=== PATIENT | female | born 1965 | race Caucasian/White ===

== ENCOUNTER 2016-09-30 08:25 | Emergency (ER) | payer BC ==
[2016-09-30 08:35] VITALS: RESP 18
[2016-09-30] MEDS ORDERED: KETOROLAC 30 MG/ML 1 ML VIAL IVP STA (08:44)
[2016-09-30] MEDS ORDERED: SODIUM CHLORIDE 0.9% 1,000 ML IV STA (08:44)
[2016-09-30] MEDS ORDERED: ONDANSETRON 4 MG/2 ML VIAL IVP STA (08:44)
--- NOTE | 2016-09-30 08:50 | ED ---
Abdominal Pain HPI - General Chief Complaint: Abdominal Pain Stated Complaint: ABDOMINAL AND BACK PAIN Time Seen by Provider: 09/30/16 08:37 Source: patient, RN notes reviewed Mode of arrival: ambulatory Limitations: no limitations - History of Present Illness Initial Comments: 51-year-old female presents emergency Department chief complaint right-sided abdominal pain. Patient states pain isn't present for 1 week. Patient states she woke up on with that sleep with the sudden onset of pain. Patient states that she's been seen twice at [facility] with no answers. Patient states that she did have a CAT scan without contrast rule out kidney stone though she states there was no stones. Patient denies fever, chills, night sweats. Patient does admit to some nausea but no vomiting no diarrhea no constipation. Denies any melena or hematochezia. Patient had a prior cholecystectomy in 2008 and a hysterectomy 2011. Patient denies any dysuria or hematuria. Denies any vaginal bleeding vaginal discharge. Patient states that nothing makes it feel better or worse. She states she did go back for second ER visit there and they told her she had a back strain but states that she has no tenderness her back she has no increased pain with range of motion. Patient was given Flexeril. Patient states that it primarily starts in her right upper quadrant, right lower abdomen and radiates to her back. - Related Data Home Medications Medication Instructions Recorded Confirmed Cyclobenzaprine [Flexeril] 10 mg PO BID PRN 09/30/16 09/30/16 Ibuprofen [Motrin] 800 mg PO Q6H PRN 09/30/16 09/30/16 Previous Rx's Medication Instructions Recorded Dicyclomine [Bentyl] 20 mg PO TID #30 tablet 09/30/16 traMADol HCl [Ultram] 50 mg PO Q6H PRN #20 tab 09/30/16 Allergies Allergy/AdvReac Type Severity Reaction Status Date / Time No Known Allergies Allergy Unverified 09/30/16 09:04 Review of Systems ROS Statement: Those systems with pertinent positive or pertinent negative responses have been documented in the HPI. ROS Other: All systems not noted in ROS Statement are negative. Past Medical History Past Medical History: No Reported History History of Any Multi-Drug Resistant Organisms: None Reported Past Surgical History: Section, Cholecystectomy, Hysterectomy Past Psychological History: No Psychological Hx Reported Smoking Status: Current every day smoker Past Alcohol Use History: None Reported Past Drug Use History: None Reported General Exam Limitations: no limitations General appearance: alert, in no apparent distress Head exam: Present: atraumatic, normocephalic, normal inspection Respiratory exam: Present: normal lung sounds bilaterally. Absent: respiratory distress, wheezes, rales, rhonchi, stridor Cardiovascular Exam: Present: regular rate, normal rhythm, normal heart sounds. Absent: systolic murmur, diastolic murmur, rubs, gallop, clicks GI/Abdominal exam: Present: soft, tenderness (Moderate tenderness right upper quadrant, right side of mid abdomen, no CVA tenderness), normal bowel sounds. Absent: distended, guarding, rebound, rigid Back exam: Present: full ROM. Absent: tenderness, CVA tenderness (R), CVA tenderness (L), paraspinal tenderness, vertebral tenderness Skin exam: Present: warm, dry, intact, normal color. Absent: rash Course Vital Signs 09/30/16 08:33 Temperature 98.4 F Pulse Rate 69 Respiratory 18 Rate Blood Pressure 154/73 O2 Sat by Pulse 99 Oximetry Medical Decision Making - Medical Decision Making 51-year-old female presented for redness abdominal pain. Patient's lab work, CT within normal limits. Patient was given Toradol emergency department though she states does not help her pain much. Patient was offered additional pain medication though she declined stating that she does not like the way it makes her feel. Patient has had no vomiting emergency department. Patient is advised that she needs to follow-up with on-call GI or surgeon for colonoscopy or EGD. Patient states does agree to this plan. Patient will be discharged with tramadol. Return parameters were discussed. - Lab Data Result diagrams: 09/30/16 09:35 09/30/16 09:35 Lab Results 09/30/16 09/30/16 09/30/16 Range/Units 09:35 09:35 09:35 WBC 11.1 H (3.8-10.6) k/uL RBC 4.24 (3.80-5.40) m/uL Hgb 13.3 (11.4-16.0) gm/dL Hct 41.1 (34.0-46.0) % MCV 96.9 (80.0-100.0) fL MCH 31.4 (25.0-35.0) pg MCHC 32.4 (31.0-37.0) g/dL RDW 13.2 (11.5-15.5) % Plt Count 224 (150-450) k/uL Neutrophils % 69 % Lymphocytes % 23 % Monocytes % 4 % Eosinophils % 2 % Basophils % 1 % Neutrophils # 7.6 (1.3-7.7) k/uL Lymphocytes # 2.5 (1.0-4.8) k/uL Monocytes # 0.4 (0-1.0) k/uL Eosinophils # 0.3 (0-0.7) k/uL Basophils # 0.1 (0-0.2) k/uL Sodium 144 (137-145) mmol/L Potassium 4.6 (3.5-5.1) mmol/L Chloride 107 (98-107) mmol/L Carbon Dioxide 27 (22-30) mmol/L Anion Gap 10 mmol/L BUN 11 (7-17) mg/dL Creatinine 1.15 H (0.52-1.04) mg/dL Est GFR (MDRD) Af Amer >60 (>60 ml/min/1.73 sqM) Est GFR (MDRD) Non-Af 50 (>60 ml/min/1.73 sqM) Glucose 100 H (74-99) mg/dL Calcium 9.5 (8.4-10.2) mg/dL Total Bilirubin 0.6 (0.2-1.3) mg/dL AST 23 (14-36) U/L ALT 40 (9-52) U/L Alkaline Phosphatase 83 (38-126) U/L Total Protein 7.5 (6.3-8.2) g/dL Albumin 4.4 (3.5-5.0) g/dL Amylase 36 (30-110) U/L Lipase 54 (23-300) U/L Urine Color Light Yellow Urine Appearance Clear (Clear) Urine pH 5.0 (5.0-8.0) Ur Specific [place] 1.009 (1.001-1.035) Urine Protein Negative (Negative) Urine Glucose (UA) Negative (Negative) Urine Ketones Negative (Negative) Urine Blood Negative (Negative) Urine Nitrate Negative (Negative) Urine Bilirubin Negative (Negative) Urine Urobilinogen <2.0 (<2.0) mg/dL Ur Leukocyte Esterase Negative (Negative) Disposition Clinical Impression: Abdominal pain Disposition: HOME SELF-CARE Condition: Stable Instructions: Abdominal Pain (ED) Additional Instructions: Please return to the Emergency Department if symptoms worsen or any other concerns. Prescriptions: Dicyclomine [Bentyl] 20 mg PO TID #30 tablet traMADol HCl [Ultram] 50 mg PO Q6H PRN #20 tab PRN Reason: Pain Referrals: None,Stated [Primary Care Provider] - 1-2 days Maryan Little MD [STAFF PHYSICIAN] - 1-2 days Time of Disposition: 10:34
[2016-09-30] MEDS ORDERED: RX INFO: IV CONTRAST WAS GIVEN 1 EACH MISC MISCELLANE PRN (09:07)
[2016-09-30 09:49] LABS: Basophils # (A) 0.1 k/uL (0-0.2); Basophils % (A) 1 %; CH 32.5; CHCM 33.7; Eosinophils # (A) 0.3 k/uL (0-0.7); Eosinophils % (A) 2 %; HCT 41.1 % (34.0-46.0); HDW 2.57; HGB 13.3 gm/dL (11.4-16.0); Luc # (Auto) 0.15; Luc % (Auto) 1; Lymphocytes # (A) 2.5 k/uL (1.0-4.8); Lymphocytes % (A) 23 %; MCH 31.4 pg (25.0-35.0); MCHC 32.4 g/dL (31.0-37.0); MCV 96.9 fL (80.0-100.0); Mean Platelet Volume 9.4; Monocytes # (A) 0.4 k/uL (0-1.0); Monocytes % (A) 4 %; Neutrophils # (A) 7.6 k/uL (1.3-7.7); Neutrophils % (A) 69 %; RBC 4.24 m/uL (3.80-5.40); RDW 13.2 % (11.5-15.5); WBC 11.1 k/uL (3.8-10.6); WBC (Perox) 11.39
[2016-09-30 09:56] LABS: Appearance,Urine Clear (Clear); Bilirubin,Urine Negative (Negative); Glucose,Urine (UA) Negative (Negative); Ketones,Urine Negative (Negative); Leukocyte Esterase,Urine Negative (Negative); Nitrite,Urine Negative (Negative); Protein,Urine Negative (Negative); Specific Gravity,Urine 1.009 (1.001-1.035); UA Billing (MACRO vs. MICRO) CHEM; Urobilinogen,Urine <2.0 mg/dL (<2.0)
[2016-09-30 09:58] LABS: ALT 40 U/L (9-52); AST 23 U/L (14-36); Alkaline Phosphatase 83 U/L (38-126); Amylase 36 U/L (30-110); Anion Gap 10 mmol/L; Blood Urea Nitrogen 11 mg/dL (7-17); Calcium 9.5 mg/dL (8.4-10.2); Carbon Dioxide 27 mmol/L (22-30); Chloride 107 mmol/L (98-107); Glucose 100 mg/dL (74-99); Non-African American GFR(MDRD) 50 (>60 ml/min/1.73 sqM); Potassium 4.6 mmol/L (3.5-5.1); Sodium 144 mmol/L (137-145); Total Bilirubin 0.6 mg/dL (0.2-1.3); Total Protein 7.5 g/dL (6.3-8.2)
--- NOTE | 2016-09-30 10:21 | CT ---
EXAMINATION TYPE: CT abdomen pelvis w con DATE OF EXAM: 09/30/2016 10:08 AM HISTORY: Patient complains of right flank pain and nausea x7 days. CT DLP: 1740mGycm Automated Exposure Control for Dose Reduction was Utilized. CONTRAST: CT scan of the abdomen and pelvis is performed without oral but with IV Contrast, patient injected wi th 100 mL of Omnipaque 300. COMPARISON: MRI abdomen March 22, 2014. MRI pelvis one week earlier. FINDINGS: LUNG BASES: Some dependent atelectatic change in right lung base is present.. LIVER/GB: Cholecystectomy clips are noted. Liver is diffusely low dense raising concern for fatty inf iltration. PANCREAS: No significant abnormality is seen. SPLEEN: No significant abnormality is seen. ADRENALS: No significant abnormality is seen. KIDNEYS: There is a small scar with 1.2 cm low dense lesion lower pole level right kidney near [place] l image 41 presumed benign. This has been seen on prior studies. There is symmetric cortical medullar y uptake and excretion from both kidneys without evidence of hydronephrosis identified bilaterally. BOWEL: Evaluation of bowel is slightly suboptimal due to lack of enteric contrast. There is no suspic ious small or large bowel dilatation seen. Normal-appearing appendix is seen from the cecum. UTERUS/ADNEXA: Uterus is surgically absent. LYMPH NODES: No greater than 1cm abdominal or pelvic lymph nodes are appreciated. OSSEOUS STRUCTURES: Mild multilevel anterior spurring and spine is present. OTHER: No significant additional abnormality is seen. IMPRESSION: No significant acute finding is seen to account for patient's clinical symptoms.
[2016-09-30 11:15] VITALS: BP 137/87; PULSE 87; TEMP 98.1
== END 2016-09-30 11:14 | disposition home or self-care (01) ==
LOC: EC 08:25
DX: R10.11 Right upper quadrant pain (principal); R10.31 Right lower quadrant pain; M54.9 Dorsalgia, unspecified; R11.0 Nausea; F17.200 Nicotine dependence, unspecified, uncomplicated; Z90.49 Acquired absence of other specified parts of digestive tract; Z90.710 Acquired absence of both cervix and uterus
CPT/HCPCS: 99284; 96374; 96375; 96361 ×2; 36415; 80053; 82150; 83690; 85025; 81003; 74177; J2405; J1885; Q9967

== ENCOUNTER → 2016-11-02 | Outpatient (CLI) | payer BC ==
--- NOTE | 2016-11-03 13:39 | MM ---
Reason for exam: screening (asymptomatic). Last mammogram was performed 2 years and 8 months ago. History: Patient is postmenopausal. Family history of breast cancer in sister at age 48. Physical Findings: A clinical breast exam by your physician is recommended on an annual basis and results should be correlated with mammographic findings. MG Screening Mammo w CAD Bilateral CC and MLO view(s) were taken. Prior study comparison: February 21, 2014, bilateral MG screening mammo w CAD. July 09, 2011, bilateral digital screening mammo w/CAD. There are scattered fibroglandular densities. No significant changes when compared with prior studies. ASSESSMENT: Benign, BI-RAD 2 RECOMMENDATION: Routine screening mammogram of both breasts in 1 year.
== END | disposition home or self-care (01) ==
LOC: RADMAMWWP 08:18
PROVIDERS: ATTEND Family Medicine
DX: Z12.31 Encounter for screening mammogram for malignant neoplasm of breast (principal)

== ENCOUNTER → 2016-12-23 | Outpatient (CLI) | payer BC ==
--- NOTE | 2016-12-23 09:14 | XR ---
EXAMINATION TYPE: XR lumbar spine 2 or 3V DATE OF EXAM: 12/23/2016 8:55 AM CLINICAL HISTORY: pain TECHNIQUE: Three views of the lumbar spine are submitted. COMPARISON: None. FINDINGS: There are 5 lumbar type vertebral bodies identified. The lumbar spine shows satisfactory alignment w ithout evidence of acute fracture or dislocation. Vertebral body heights are within normal limits. Moderate degenerative disc space narrowing and spondylosis. Facet joint arthropathy noted. The overl sharan soft tissue appears unremarkable. IMPRESSION: No acute fracture or dislocation is seen in the lumbar spine. ICD 10 NO FRACTURE, INITIAL EVALUATION
--- NOTE | 2016-12-23 09:15 | XR ---
EXAMINATION TYPE: XR Hip Complete RT DATE OF EXAM: 12/23/2016 8:55 AM CLINICAL HISTORY: pain TECHNIQUE: AP and frogleg views of the right hip are obtained. COMPARISON: None. FINDINGS: There is no acute fracture/dislocation evident. The joint space appears within normal li mits. The overlying soft tissue appears unremarkable. IMPRESSION: 1. There is no acute fracture or dislocation. ICD 10 NO FRACTURE, INITIAL EVALUATION
== END | disposition home or self-care (01) ==
LOC: RADXRMAIN 08:32
PROVIDERS: ATTEND Family Medicine
DX: M54.5 Low back pain (principal); M25.551 Pain in right hip
CPT/HCPCS: 72100; 73502

== ENCOUNTER → 2018-02-21 | Outpatient (CLI) | payer BC ==
--- NOTE | 2018-02-21 15:15 | CT ---
EXAMINATION TYPE: CT brain wo con DATE OF EXAM: 02/21/2018 COMPARISON: NONE HISTORY: syncope/dizziness. CT DLP: 1121 mGycm Automated exposure control for dose reduction was used. FINDINGS: There is a nasal septal deviation. Calvarium intact. Pineal gland cyst measuring 7 mm suspected. Faint periventricular low attenuation is nonspecific. No midline shift or acute hemorrhage. No mass effect. IMPRESSION: NONSPECIFIC WHITE MATTER CHANGES CAN BE ASSOCIATED WITH REMOTE MICROVASCULAR ISCHEMIA. RECOMMEND FOLL OW-UP MRI.
--- NOTE | 2018-02-21 16:00 | US ---
EXAMINATION TYPE: US carotid duplex BILAT DATE OF EXAM: 02/21/2018 COMPARISON: NONE CLINICAL HISTORY: R55 syncope/R42 dizziness. Syncope, dizziness EXAM MEASUREMENTS: RIGHT: Peak Systolic Velocity (PSV) cm/sec ----- Right CCA: 75.4 ----- Right ICA: 107.6 ----- Right ECA: 97.5 ICA/CCA ratio: 1.4 RIGHT: End Diastole cm/sec ----- Right CCA: 30.3 ----- Right ICA: 50.6 ----- Right ECA: 18.3 LEFT: Peak Systolic Velocity (PSV) cm/sec ----- Left CCA: 74.0 ----- Left ICA: 96.6 ----- Left ECA: 98.8 ICA/CCA ratio: 1.3 LEFT: End Diastole cm/sec ----- Left CCA: 26.6 ----- Left ICA: 49.2 ----- Left ECA: 17.1 VERTEBRALS (direction of flow): Right Vertebral: Antegrade Left Vertebral: Antegrade Rhythm: Normal No elevated velocities, no significant stenosis. Grayscale, color Doppler, spectral Doppler imaging performed of the carotid arteries. Waveform analysis does not show significant stenosis of the proximal internal carotid arteries. IMPRESSION: No hemodynamic significant stenosis of the proximal internal carotid arteries bilaterall y by Doppler criteria, an indirect measurement of carotid stenosis
--- NOTE | 2018-02-21 18:01 | ECHOF ---
Referral Reason:R55 syncope R42 dizziness MEASUREMENTS -------- HEIGHT: 160.0 cm WEIGHT: 83.5 kg BP: RVIDd: 3.1 cm (< 3.3) IVSd: 0.9 cm (0.6 - 1.1) LVIDd: 4.2 cm (3.9 - 5.3) LVPWd: 0.9 cm (0.6 - 1.1) IVSs: 1.0 cm LVIDs: 2.9 cm LVPWs: 1.3 cm LAESV Index (A-L): 15.43 ml/m Ao Diam: 2.6 cm (2.0 - 3.7) AV Cusp: 1.5 cm (1.5 - 2.6) LA Diam: 2.7 cm (2.7 - 3.8) EPSS: 1.2 cm MV E Chris: 0.68 m/s MV DecT: 275 ms MV A Chris: 0.83 m/s MV E/A Ratio: 0.82 RAP: 5.00 mmHg RVSP: 22.98 mmHg MV EF SLOPE: 99.42 mm/s (70 - 150) MV EXCURSION: 1.61 cm (> 18.000) FINDINGS -------- Sinus rhythm. This was a technically adequate study. The left ventricular size is normal. Left ventricular wall thickness is normal. Overall left vent ricular systolic function is normal with, an EF between 55 - 60 %. The right ventricle is normal in size and function. Normal LA size by volume 22+/-6 ml/m2. The right atrium is normal in size. Aortic valve is trileaflet and is mildly thickened. There is no evidence of aortic regurgitation. There is no evidence of aortic stenosis. The mitral valve leaflets are mildly thickened. There is trace mitral regurgitation. Trace tricuspid regurgitation present. Right ventricular systolic pressure is normal at < 35 mmHg. There is no evidence of pulmonary hypertension. The pulmonic valve was not well visualized. The aortic root size is normal. IVC Not well visulized. Echo free space indicative of a pericardial fat pad. There is no pericardial effusion. CONCLUSIONS -------- 1. Sinus rhythm. 2. This was a technically adequate study. 3. The left ventricular size is normal. 4. Left ventricular wall thickness is normal. 5. Overall left ventricular systolic function is normal with, an EF between 55 - 60 %. 6. Normal LA size by volume 22+/-6 ml/m2. 7. Aortic valve is trileaflet and is mildly thickened. 8. The mitral valve leaflets are mildly thickened. 9. There is trace mitral regurgitation. 10. Trace tricuspid regurgitation present. 11. Right ventricular systolic pressure is normal at < 35 mmHg. 12. There is no evidence of pulmonary hypertension. 13. The pulmonic valve was not well visualized. 14. The aortic root size is normal. 15. IVC Not well visulized. 16. Echo free space indicative of a pericardial fat pad. 17. There is no pericardial effusion. WHARFINGER CHIEF: Ismael Bowen RDCS
== END | disposition home or self-care (01) ==
LOC: RADCTMAIN 14:22
PROVIDERS: ATTEND Family Medicine
DX: R90.89 Other abnormal findings on diagnostic imaging of central nervous system (principal); I08.0 Rheumatic disorders of both mitral and aortic valves
CPT/HCPCS: 70450; 93306; 93880

== ENCOUNTER → 2018-03-21 | Outpatient (CLI) | payer BC ==
--- NOTE | 2018-03-21 22:36 | MR ---
EXAMINATION TYPE: MR brain wo con DATE OF EXAM: 03/21/2018 COMPARISON: CT brain February 21, 2018 HISTORY: Abnormal CT recently performed for syncope and dizziness. TECHNIQUE: Multiplanar, multisequence imaging of the brain and brainstem is performed without IV cont rast. FINDINGS: Diffusion weighted images demonstrate no evidence of a recent infarct or other diffusion abnormality. There is no extraaxial fluid collection or significant white matter signal abnormality. The ventricu lar system and cisternal spaces are normal in size and appearance. The brain volume is age appropria te. Midline structures demonstrate normal morphology. The craniocervical junction appears within normal limits. Normal vascular flow voids are present. Dominant right vertebral artery incidentally noted. T he visualized sinuses are clear and the globes are intact. No suspicious fluid signal bilateral masto id air cells is present. IMPRESSION: No significant white matter signal changes identified on MRI which is noted more sensitiv e than CT.
== END | disposition home or self-care (01) ==
LOC: RADMRIMAIN 21:52
PROVIDERS: ATTEND Family Medicine
DX: R94.02 Abnormal brain scan (principal)
CPT/HCPCS: 70551

== ENCOUNTER → 2019-03-31 | Outpatient (CLI) | payer BC ==
--- NOTE | 2019-03-31 14:47 | XR ---
EXAMINATION TYPE: XR chest 2V DATE OF EXAM: 03/31/2019 COMPARISON: NONE HISTORY: Cough and congestion for one month. TECHNIQUE: Frontal and lateral views of the chest are obtained. FINDINGS: There is no focal air space opacity, pleural effusion, or pneumothorax seen. The cardiac silhouette size is within normal limits. The osseous structures are intact. Cholecystectomy clips a re noted on lateral view. IMPRESSION: No suspicious acute pulmonary process.
== END | disposition home or self-care (01) ==
LOC: RADXRMAIN 14:30
PROVIDERS: ATTEND Family Medicine
DX: R07.9 Chest pain, unspecified (principal)
CPT/HCPCS: 71046

== ENCOUNTER → 2020-04-04 | Outpatient (CLI) | payer BC ==
--- NOTE | 2020-04-04 23:36 | US ---
EXAMINATION TYPE: US kidneys/renal and bladder DATE OF EXAM: 04/04/2020 COMPARISON: None CLINICAL HISTORY: 55-year-old female R10.9 Left flank pain. Pt states left flank pain TECHNIQUE: Multiple sonographic images of the kidneys and bladder are obtained. FINDINGS: EXAM MEASUREMENTS: Right Kidney: 11.6 x 4.3 x 5.0 cm with a 1.2 cm lower pole cyst. Left Kidney: 12.0 x 5.3 x 4.8 cm No hydronephrosis on either side. Bladder: wnl Bilateral Jets seen: No Incidental echogenic hepatic parenchyma. IMPRESSION: 1. No hydronephrosis. 2. Echogenic hepatic parenchyma suggestive of moderate to severe hepatic steatosis.
== END | disposition home or self-care (01) ==
LOC: RADUSWWP 15:45
PROVIDERS: ATTEND Urology
DX: K76.89 Other specified diseases of liver (principal)
CPT/HCPCS: 76770

== ENCOUNTER → 2021-06-30 | Day surgery (SDC) | payer BC ==
[2021-06-25 14:22] VITALS: BMI 29.7
[~2021-06-30] MED LIST: LACTATED RINGERS 1,000 ML IV SCH; LIDOCAINE 1% (10MG/ML) FOR IV START INTRADERMA ONE; PROPOFOL 10 MG/ML 20 ML VIAL IV ONE
--- NOTE | 2021-06-30 07:47 | P.GSHP ---
History of Present Illness H&P Date: 06/30/21 CHIEF COMPLAINT: Colon screen HISTORY OF PRESENT ILLNESS: The patient is a 56-year-old female who presents for colon screen. Lower endoscopy was offered for further evaluation and management. PAST MEDICAL HISTORY: Please see list. PAST SURGICAL HISTORY: Please see list. MEDICATIONS: Please see list. ALLERGIES: Please see list. SOCIAL HISTORY: No illicit drug use FAMILY HISTORY: No reports of Crohn disease or ulcerative colitis. REVIEW OF ORGAN SYSTEMS: CONSTITUTIONAL: No reports of fevers or chills. PHYSICAL EXAM: VITAL SIGNS: Stable GENERAL: Well-developed pleasant in no acute distress. HEENT: No scleral icterus. Extraocular movements grossly intact. Moist buccal mucosa. NECK: Supple without lymphadenopathy. CHEST: Unlabored respirations. Equal bilateral excursions. CARDIOVASCULAR: Regular rate and rhythm. Distal 2+ pulses. ABDOMEN: Soft, nontender, nondistended. MUSCULOSKELETAL: No clubbing, cyanosis, or edema. ASSESSMENT: 1. Colon screen. PLAN: 1. Recommend proceeding with a lower endoscopy Past Medical History Past Medical History: COPD, Diabetes Mellitus, GERD/Reflux, Hyperlipidemia History of Any Multi-Drug Resistant Organisms: None Reported Past Surgical History: Section, Cholecystectomy, Hysterectomy, Orthopedic Surgery Additional Past Surgical History / Comment(s): rt shoulder surgery Past Anesthesia/Blood Transfusion Reactions: No Reported Reaction Smoking Status: Current every day smoker Medications and Allergies Home Medications Medication Instructions Recorded Confirmed Type Dapagliflozin Propanediol [Farxiga] 10 mg PO DAILY 06/25/21 06/25/21 History Famotidine [Pepcid] 20 mg PO BID 06/25/21 06/25/21 History Losartan Potassium [Cozaar] 25 mg PO DAILY 06/25/21 06/25/21 History Rosuvastatin [Crestor] 20 mg PO DAILY 06/25/21 06/25/21 History metFORMIN HCL [Glucophage] 1,000 mg PO BID 06/25/21 06/25/21 History Allergies Allergy/AdvReac Type Severity Reaction Status Date / Time No Known Allergies Allergy Unverified 06/25/21 14:15
[2021-06-30 08:32] VITALS: RESP 16; TEMP 97
[2021-06-30 08:32] LABS: Glucose,Whole Blood 107 mg/dL (75-99)
--- NOTE | 2021-06-30 09:12 | P.PCN ---
Date of Procedure: 06/30/21 Description of Procedure: PREOPERATIVE DIAGNOSIS: Colonoscopy screening. POSTOPERATIVE DIAGNOSIS: Colonoscopy screening. OPERATION: Colonoscopy to the ascending colon, ileocecal valve SURGEON: Mary Hyman MD. ANESTHESIA: MAC. INDICATIONS: The patient is a 56-year-old female who presents for colonoscopy screening. Benefits and risks were described and informed consent was obtained. DESCRIPTION OF PROCEDURE: The patient had undergone Sutab prep. The patient had been brought into the operating room and laid in the left lateral decubitus position. After adequate intravenous sedation, the rectum was examined with 2% lidocaine jelly. No external hemorrhoids were encountered. The rectal tone was within normal limits. No lesions were palpated in the rectal vault. An Olympus colonoscope was advanced until ileocecal valve was reviewed. The prep was limited due to liquid stool and semisolid stool prohibiting complete view of the mucosa. No large scattered diverticulosis was encountered. No evidence of focal colitis was found. Retroflexion of the scope demonstrated grade 1 internal hemorrhoids without active bleeding or inflammation. The colon was desufflated. The patient had tolerated the procedure well. Withdrawal time was over 6 minutes. FINDINGS: Aronchick preparation quality scale 3 (1-5) Internal hemorrhoids, grade 1 No external prolapsed hemorrhoids. No arteriovenous malformations. No large adenomatous polyps. No focal colitis. RECOMMENDATIONS: Due to limited view mucosa and poor prep, repeat colonoscopy 5 years, 2025 Plan - Discharge Summary Discharge Rx Participant: No New Discharge Prescriptions: Continue Famotidine [Pepcid] 20 mg PO BID Dapagliflozin Propanediol [Farxiga] 10 mg PO DAILY metFORMIN HCL [Glucophage] 1,000 mg PO BID Losartan Potassium [Cozaar] 25 mg PO DAILY Rosuvastatin [Crestor] 20 mg PO DAILY Discharge Medication List Dapagliflozin Propanediol [Farxiga] 10 mg PO DAILY 06/25/21 [History] Famotidine [Pepcid] 20 mg PO BID 06/25/21 [History] Losartan Potassium [Cozaar] 25 mg PO DAILY 06/25/21 [History] Rosuvastatin [Crestor] 20 mg PO DAILY 06/25/21 [History] metFORMIN HCL [Glucophage] 1,000 mg PO BID 06/25/21 [History] Follow up Appointment(s)/Referral(s): Mary Hyman MD [STAFF PHYSICIAN] - As Needed Patient Instructions/Handouts: *Surgery [facility] - (Anesthesia) Endoscopy Discharge Instructions, Colonoscopy (DC) Activity/Diet/Wound Care/Special Instructions: Repeat colonoscopy 5 years, 2025 Discharge Disposition: HOME SELF-CARE
[2021-06-30 09:33] VITALS: BP 107/71; PULSE 76
== END | disposition home or self-care (01) ==
LOC: ORWHC2ENDO 07:41
PROVIDERS: ATTEND Surgery Plastic and Reconstructive Surgery
DX: Z12.11 Encounter for screening for malignant neoplasm of colon (principal); K21.9 Gastro-esophageal reflux disease without esophagitis; E11.9 Type 2 diabetes mellitus without complications; E78.5 Hyperlipidemia, unspecified; F17.200 Nicotine dependence, unspecified, uncomplicated; Z79.84 Long term (current) use of oral hypoglycemic drugs; Z90.49 Acquired absence of other specified parts of digestive tract
CPT/HCPCS: J2704; G0121